=== PATIENT | male | born 1950 | race Asian ===

== ENCOUNTER 2022-07-16 12:01 | Emergency (ER) | payer MEDICAID ==
[~2022-07-16] VITALS: Ht 170.2 cm; Wt 64.0 kg
[2022-07-16 12:22] VITALS: BP 182/76
[2022-07-16] MEDS ORDERED: ACETAMINOPHEN 325MG TABLET PO STA (14:51)
[2022-07-16 16:04] LABS: CLARITY URINE CLEAR (CLEAR); COLOR URINE YELLOW (YELLOW); KETONES URINE TRACE (NEGATIVE); LEUKOCYTE ESTERASE URINE NEGATIVE (NEGATIVE); NITRITE URINE NEGATIVE (NEGATIVE); OCCULT BLOOD URINE NEGATIVE (NEGATIVE); PH URINE 5.5 (4.5-8.0); PROTEIN URINE NEGATIVE (NEGATIVE); SPECIFIC GRAVITY URINE 1.019 (1.005-1.030); UROBILINOGEN URINE 0.2 E.U./dL (0.2-1.0)
[2022-07-16] MEDS ORDERED: ACET-2708 MT (16:09)
== END 2022-07-16 16:24 | disposition home or self-care (01) ==
LOC: ER 12:01
DX: S39.012A Strain of muscle, fascia and tendon of lower back, initial encounter (principal); F17.210 Nicotine dependence, cigarettes, uncomplicated; X58.XXXA Exposure to other specified factors, initial encounter; Y93.9 Activity, unspecified; Y92.9 Unspecified place or not applicable; Z98.890 Other specified postprocedural states
CPT/HCPCS: 71045; 81003; 99284

== ENCOUNTER 2022-07-24 02:29 | Emergency (ER) | payer MEDICAID ==
[~2022-07-24] VITALS: Ht 167.6 cm; Wt 70.0 kg
[~2022-07-24 02:29] MED LIST: ACET-2708 MT
[2022-07-24 02:40] VITALS: BP 124/81
[2022-07-24] MEDS ORDERED: BACITRACIN ZINC OINT UDPKT TOP ONE (04:00)
[2022-07-24] MEDS ORDERED: TETANUS, DIPHTHERIA, PERTUSSIS VAC/PF 0.5ML (>10YR OLD) IM ONE (04:00)
[2022-07-24] MEDS ORDERED: LIDOCAINE HCL/PF 1% 10 MG/ML 5ML VIAL INFIL ONE (04:00)
[2022-07-24] MEDS ORDERED: BO1 TP (05:09)
== END 2022-07-24 05:30 | disposition home or self-care (01) ==
LOC: ER 02:29
DX: S01.01XA Laceration without foreign body of scalp, initial encounter (principal); V43.52XA Car driver injured in collision with other type car in traffic accident, initial encounter; Y93.89 Activity, other specified; Y92.410 Unspecified street and highway as the place of occurrence of the external cause; Z98.890 Other specified postprocedural states
CPT/HCPCS: 12002; 90471; 90715; 99283; J3490; Z7610

== ENCOUNTER 2022-07-24 14:14 | Emergency (ER) | payer MEDICAID ==
[~2022-07-24] VITALS: Ht 165.1 cm; Wt 62.0 kg
[~2022-07-24 14:14] MED LIST changes: +BO1 TP
[2022-07-24 14:20] VITALS: BP 165/76
[2022-07-24] MEDS ORDERED: ACETAMINOPHEN 325MG TABLET PO NR (15:17)
== END 2022-07-24 18:51 | disposition home or self-care (01) ==
LOC: ER 14:14
DX: S01.01XA Laceration without foreign body of scalp, initial encounter (principal); X58.XXXA Exposure to other specified factors, initial encounter; Y93.89 Activity, other specified; Y92.89 Other specified places as the place of occurrence of the external cause; Y99.8 Other external cause status
CPT/HCPCS: 72100; 73130; 99284

== ENCOUNTER 2022-08-10 12:11 | Emergency (ER) | payer MEDICAID ==
[~2022-08-10] VITALS: Ht 165.1 cm; Wt 59.0 kg
[2022-08-10 12:14] VITALS: BP 162/81
== END 2022-08-10 13:21 | disposition home or self-care (01) ==
LOC: ER 12:15
DX: S01.81XD Laceration without foreign body of other part of head, subsequent encounter (principal); X58.XXXD Exposure to other specified factors, subsequent encounter; Z90.49 Acquired absence of other specified parts of digestive tract
CPT/HCPCS: 99281

== ENCOUNTER 2022-11-11 23:11 | Emergency (ER) | payer SELFPAY ==
[~2022-11-11] VITALS: Ht 157.5 cm; Wt 64.3 kg
[2022-11-12 00:56] VITALS: BP 176/74
[2022-11-12] MEDS ORDERED: AMLO5TAB88 MT (01:40)
== END 2022-11-12 01:55 | disposition home or self-care (01) ==
LOC: ER 23:11
DX: I10 Essential (primary) hypertension (principal); Z90.49 Acquired absence of other specified parts of digestive tract
CPT/HCPCS: 99283

== ENCOUNTER 2023-07-22 13:55 | Emergency (ER) | payer SELFPAY ==
[~2023-07-22] VITALS: Ht 170.2 cm; Wt 64.0 kg
[~2023-07-22 13:55] MED LIST changes: +AMLO5TAB88 MT
[2023-07-22 14:05] VITALS: BP 160/75; O2SAT 99
[2023-07-22] MEDS ORDERED: AZIT250T12 MT (16:50)
[2023-07-22] MEDS ORDERED: TOPUD MT (16:50)
[2023-07-22] MEDS ORDERED: DEXT30SU17 MT (16:50)
[2023-07-22] MEDS ORDERED: IBUP-1523 MT (16:50)
[2023-07-22 17:54] VITALS: PULSE 66; RESP 16; TEMP 97.4
== END 2023-07-22 17:52 | disposition home or self-care (01) ==
LOC: ER 13:55
DX: J20.9 Acute bronchitis, unspecified (principal); I10 Essential (primary) hypertension; Z20.822 Contact with and (suspected) exposure to COVID-19; Z90.49 Acquired absence of other specified parts of digestive tract
CPT/HCPCS: 99284; 71045; 87426; 87420; 87804 ×2; C9803

== ENCOUNTER 2023-12-03 05:48 | Emergency (ER) | payer SELFPAY ==
[~2023-12-03] VITALS: Ht 162.6 cm; Wt 59.1 kg
[~2023-12-03 05:48] MED LIST changes: +AZIT250T12 MT; +DEXT30SU17 MT; +IBUP-1523 MT; +TOPUD MT
[2023-12-03 05:52] VITALS: BP 180/75; PULSE 72; RESP 16; TEMP 98.4; O2SAT 99
== END 2023-12-03 08:13 | disposition left against medical advice (07) ==
LOC: ER 06:00
DX: R68.89 Other general symptoms and signs (principal); Z53.21 Procedure and treatment not carried out due to patient leaving prior to being seen by health care provider

== ENCOUNTER 2023-12-04 03:44 | Emergency (ER) | payer SELFPAY ==
[2023-12-04 03:49] VITALS: PULSE 72
== END 2023-12-04 05:17 | disposition left against medical advice (07) ==
LOC: ER 03:44
DX: R42 Dizziness and giddiness (principal); Z53.21 Procedure and treatment not carried out due to patient leaving prior to being seen by health care provider